=== PATIENT | female | born 1990 | race Caucasian/White ===

== ENCOUNTER → 2017-03-07 | Outpatient (CLI) | payer BC ==
--- NOTE | 2017-03-07 09:52 | Diagnostic Imaging Report ---
Indications: Sacrococcygeal pain for 2 months, no trauma Technique: 3 views of the sacrum and coccyx. Findings: Comparison: None No fracture, dislocation, joint space widening , lytic destruction, periosteal reaction , surrounding soft tissue swelling/foreign body/gas, or other acute changes are identified. IMPRESSION: Negative sacrococcygeal radiographs .
== END | disposition home or self-care (01) ==
LOC: RAD 09:20
DX: M53.3 Sacrococcygeal disorders, not elsewhere classified (principal)
CPT/HCPCS: 72220